=== PATIENT | female | born 1990 | race Caucasian/White ===

== ENCOUNTER 2022-01-18 14:49 | Emergency (ER) | payer MEDICAID ==
[~2022-01-18] VITALS: Ht 162.6 cm; Wt 81.5 kg
[2022-01-18 15:03] VITALS: BP 169/107
[2022-01-18] MEDS ORDERED: HYDR-3965 PO (15:59)
== END 2022-01-18 16:19 | disposition home or self-care (01) ==
LOC: ER 14:50
DX: K08.89 Other specified disorders of teeth and supporting structures (principal); F17.200 Nicotine dependence, unspecified, uncomplicated; Z79.899 Other long term (current) drug therapy
CPT/HCPCS: 99283